=== PATIENT | male | born 1985 | race Caucasian/White ===

== ENCOUNTER 2019-12-30 00:28 | Emergency (ER) | payer BC ==
[2019-12-30] MEDS ORDERED: KETOROLAC TROMETHAMINE 60 MG/2 ML SDV IM ONE (00:48)
[2019-12-30] MEDS ORDERED: ONDANSETRON 4 MG TAB.RAPDIS PO ONE (00:48)
--- NOTE | 2019-12-30 00:50 | ER Document Report ---
ED Medical Screen (RME) - General Chief Complaint: Flank Pain Stated Complaint: FLANK PAIN Time Seen by Provider: 12/30/19 00:47 Notes: Patient is a 34-year-old male that comes emergency department for chief complaint of severe sudden onset left lower abdomen pain radiating down to the testicle and back to the left flank. He reports nausea but denies vomiting. He denies history of kidney stones. He denies injury. He denies fever. He denies any diagnosed medical history or daily medications. Physical Exam - Genitourinary Inspection: Normal - Exam performed with Jane KNIGHT at bedside Tenderness: No: Testicle tender, Epididymis tender Cremasteric reflex: Normal. No: Right reflex absent, Left reflex absent Course - Re-evaluation Re-evalutation: I have greeted and performed a rapid initial assessment of this patient. A comprehensive ED assessment and evaluation of the patient, analysis of test results and completion of the medical decision making process will be conducted by additional ED providers.
[2019-12-30 01:36] LABS: ABSOLUTE BASOPHILS # (AUTO) 0.1 10^3/uL (0.0-0.2); ABSOLUTE EOSINOPHILS # (AUTO) 0.4 10^3/uL (0.0-0.6); ABSOLUTE LYMPHOCYTES (AUTO) 2.5 10^3/uL (0.5-4.7); ABSOLUTE MONOCYTES (AUTO) 0.8 10^3/uL (0.1-1.4); ABSOLUTE NEUT (AUTO) 6.1 10^3/uL (1.7-8.2); BASOPHILS % (AUTO) 0.8 % (0-2); EOSINOPHILS % (AUTO) 3.8 % (0-6); HEMATOCRIT 47.7 % (37.9-51.0); HEMOGLOBIN 16.7 g/dL (13.5-17.0); LYMPHOCYTES % (AUTO) 25.1 % (13-45); MEAN CORPUSCULAR HEMOGLOBIN 30.5 pg (27.0-33.4); MEAN CORPUSCULAR VOLUME 87 fl (80-97); MONOCYTES % (AUTO) 8.3 % (3-13); PLATELET COUNT 269 10^3/uL (150-450); RED BLOOD COUNT 5.48 10^6/uL (4.35-5.55); RED CELL DISTRIBUTION WIDTH 13.5 % (11.5-14.0); TOTAL CELLS COUNTED % (AUTO) 100 %; WHITE BLOOD COUNT 9.8 10^3/uL (4.0-10.5)
--- NOTE | 2019-12-30 01:52 | RADIOLOGY REPORT (SQ) ---
EXAM DESCRIPTION: CT ABDOMEN PELVIS WITHOUT IV CONTRAST COMPLETED DATE/TME: 12/30/2019 00:48 CLINICAL HISTORY: 34 years, Male, severe left abd/flank pain COMPARISON: None. TECHNIQUE: 315 Images stored on PACS. All CT scanners at this facility use dose modulation, iterative reconstruction, and/or weight based dosing when appropriate to reduce radiation dose to as low as reasonably achievable (ALARA). [facility]: Dose Right [facility]: CareDose [facility]: Dose Right [facility]: Teradose 4D [facility]: [employer] LIMITATIONS: None. FINDINGS: The lung bases are unremarkable. Osseous structures are grossly intact. Limited evaluation of the liver, spleen, adrenal glands, pancreas are unremarkable. Gallbladder is present. Hyperdense appearance to the renal pyramids which could reflect medullary nephrocalcinosis. Mild left hydroureteronephrosis secondary to an approximately 2 to 3 mm left UVJ calculus. Urinary bladder is not distended, limiting its evaluation. Post surgical changes in the left inguinal region. No gross evidence for bowel obstruction. Normal appendix. No free air or free fluid IMPRESSION: Mild left hydroureteronephrosis secondary to a 2 to 3 mm left UVJ calculus TECHNICAL DOCUMENTATION: Quality ID # [id number]: Final reports with documentation of one or more dose reduction techniques (e.g., Automated exposure control, adjustment of the mA and/or kV according to patient size, use of iterative reconstruction technique) copyright 2011 [employer]- All Rights Reserved
[2019-12-30 02:02] LABS: APPEARANCE,URINE TURBID; BILIRUBIN,URINE NEGATIVE (NEGATIVE); COLOR,URINE YELLOW; GLUCOSE, URINE NEGATIVE (NEGATIVE); KETONES,URINE NEGATIVE (NEGATIVE); LEUKOCYTE ESTERASE,URINE NEGATIVE (NEGATIVE); NITRITE,URINE NEGATIVE (NEGATIVE); PROTEIN,URINE 100 mg/dL (NEGATIVE); URINE SPECIFIC GRAVITY 1.028
[2019-12-30 02:09] LABS: ANION GAP 9 (5-19); BLOOD UREA NITROGEN 25 mg/dL (7-20); CALCIUM 9.8 mg/dL (8.4-10.2); CARBON DIOXIDE 27 mmol/L (22-30); CHLORIDE 102 mmol/L (98-107); GLUCOSE 108 mg/dL (75-110)
[2019-12-30] MEDS ORDERED: NORMAL SALINE 1000 ML 1,000 ML IV ONE (02:43)
--- NOTE | 2019-12-30 02:43 | ER Document Report ---
ED GI/ - General Chief Complaint: Possible Kidney Stone Stated Complaint: FLANK PAIN Time Seen by Provider: 12/30/19 00:47 Notes: Patient is a 34-year-old male that comes emergency department for chief complaint of severe sudden onset left lower abdomen pain radiating down to the testicle and back to the left flank. He reports nausea but denies vomiting. He denies history of kidney stones. He denies injury. He denies fever. He denies any diagnosed medical history or daily medications. - Related Data Allergies/Adverse Reactions: No Known Allergies Allergy (Unverified 12/30/19 02:17) Past Medical History - General Information source: Patient - Social History Smoking Status: Never Smoker Lives with: Family Family History: Reviewed & Not Pertinent Patient has homicidal ideation: No Surgical Hx: Negative Review of Systems - Review of Systems Constitutional: No symptoms reported EENT: No symptoms reported Cardiovascular: No symptoms reported Respiratory: No symptoms reported Gastrointestinal: See HPI Genitourinary: See HPI Male Genitourinary: See HPI Musculoskeletal: No symptoms reported Skin: No symptoms reported Hematologic/Lymphatic: No symptoms reported Neurological/Psychological: No symptoms reported Physical Exam - Vital signs Vitals: Temp Pulse Resp BP Pulse Ox 97.3 F 102 H 16 137/99 H 100 12/30/19 00:48 12/30/19 00:48 12/30/19 00:48 12/30/19 00:48 12/30/19 00:48 - Notes Notes: GENERAL: Appears distressed, pacing, diaphoretic HEAD: Normocephalic, atraumatic. EYES: Pupils equal, round, and reactive to light. Extraocular movements intact. ENT: Oral mucosa moist, tongue midline. Oropharynx unremarkable. Airway patent. NECK: Full range of motion. Supple. Trachea midline. No lymphadenopathy. LUNGS: Clear to auscultation bilaterally, no wheezes, rales, or rhonchi. No respiratory distress. Non-tender chest wall. HEART: Regular rate and rhythm. No murmur ABDOMEN: Generalized left abdominal tenderness, nonspecific, remaining abdomen unremarkable GENITOURINARY: No swelling, tenderness, or concerning findings. Normal cremaster reflex. Exam performed with Lynnette KNIGHT at bedside EXTREMITIES: Moves all 4 extremities spontaneously. No edema, normal radial and dorsalis pedis pulses bilaterally. No cyanosis. BACK: no cervical, thoracic, lumbar midline tenderness. No saddle anesthesia, normal distal neurovascular exam. Moves all extremities in full range of motion. NEUROLOGICAL: Alert and oriented x3. Normal speech. Cranial nerves II through XII grossly intact. Strength 5/5 in all extremities. PSYCH: Agitated Course - Re-evaluation Re-evalutation: Patient in severe distress on my initial evaluation. Discussed options, decision was made perform CAT scan because patient has never had a kidney stone previously. On reevaluation patient is much improved but still has some discomfort, order additional pain medication. CBC unremarkable, chemistry shows mildly elevated renal functioning, urinalysis shows blood but no overt infection. Patient was given IV fluids. CAT scan does show passing stone which is 3 mm, no other concerning findings. Patient with no signs of distress on reevaluation. No fever. Discussed details at length, discussed follow-up renal functioning testing, discussed return precautions. Patient states understanding and agreement. - Vital Signs Vital signs: Temp Pulse Resp BP Pulse Ox 97.6 F 87 16 140/97 H 100 12/30/19 04:19 12/30/19 04:19 12/30/19 04:19 12/30/19 04:19 12/30/19 04:19 - Laboratory Result Diagrams: 12/30/19 01:13 12/30/19 01:13 Laboratory results interpreted by me: 12/30/19 12/30/19 01:13 01:36 BUN 25 H Creatinine 1.39 H Est GFR (MDRD) Non-Af 58 L Urine Protein 100 H Urine Blood MODERATE H Urine Urobilinogen 2.0 H Urine Ascorbic Acid 40 H Discharge - Discharge Clinical Impression: Left flank pain, Ureterolithiasis Abdominal pain Qualifiers: Abdominal location: lower abdomen, unspecified Qualified Code(s): R10.30 - Lower abdominal pain, unspecified Condition: Stable Disposition: HOME, SELF-CARE Additional Instructions: Your work-up shows that you are passing a 3 mm kidney stone on the left side. You should build to pass this, you will likely pass this over the next couple of days. Drink plenty of fluids, take the provided pain, nausea medication if needed. If you drink plenty of fluids you can also take 600 mg of ibuprofen every 6 hours to help with the pain. Your kidney function is slightly elevated and needs to be rechecked with primary care in close follow-up. Also see the urology referral listed below. Return if you worsen including severe worsening pain, uncontrolled vomiting, fever, or any other concerning symptoms. [facility] [address] [place], [place] [id number] [facility] [address] [place], [place] [id number] Prescriptions: Oxycodone HCl/Acetaminophen [Percocet 5-325 mg Tablet] 1 tab PO TID PRN #15 tab PRN Reason: Promethazine HCl [Phenergan 25 mg Tablet] 25 mg PO Q6H PRN #15 tablet PRN Reason: Forms: Return to Work
[2019-12-30] MEDS: MORPHINE SULFATE 10 MG/ML INJ IV ONE ×2 (02:54→02:57)
[2019-12-30] MEDS ORDERED: HYDROCODONE/ACETAMINOPHEN 5-325 MG (6 TAB/ER DISP) PO PRN (03:51)
[2019-12-30] MEDS ORDERED: ONDANSETRON ODT 4 MG TAB (6 TAB/ER DISP) PO PRN (03:52)
[2019-12-30 04:21] VITALS: BP 140/97
== END 2019-12-30 04:22 | disposition home or self-care (01) ==
LOC: ER 00:28
DX: N13.2 Hydronephrosis with renal and ureteral calculous obstruction (principal); R31.9 Hematuria, unspecified; R11.0 Nausea
CPT/HCPCS: 99285; 96372; 96360; 36415; 85025; 80048; 81001; 74176; J1885; S0119; J7030; J2270